=== PATIENT | female | born 2000 | race Two or more races ===

== ENCOUNTER 2023-04-14 20:43 | Emergency (ER) | payer SELFPAY ==
[2023-04-14 20:50] VITALS: BP 115/67; PULSE 86; RESP 17; TEMP 37.1; O2SAT 99
--- NOTE | 2023-04-14 21:28 | ED.GENADUL_ITS ---
Discharge Plan Disposition Patient Disposition: Home Condition: Stable Discharge Details Clinical Impression: UTI (urinary tract infection) Primary Care Provider: [facility],Local ED Provider: Ahsan Nicole Home Meds and New Rx's Prescriptions: New cefpodoxime 200 mg tablet 200 mg PO BID 7 Days Qty: 14 0RF Rx Instructions: must administer with a meal/food Discharge Instructions Instructions: Urinary Tract Infection in Women (ED) Additional Instructions: Please follow-up with your primary care physician. Please return to the emergency department for any worsening symptoms Medical Decision Making 22-year-old female presents with mild vaginal bleeding, vaginal discomfort, dysuria over the last day; consider UTI versus gonorrhea chlamydia versus vaginal laceration versus bacterial vaginosis versus candidiasis versus trichomoniasis versus less likely . Screening labs hCG vaginal examination with vaginal swab. Treatment and disposition pending labs and examination 21: 53 normal external genitalia normal vaginal mucosa, incompletely visualized cervix, physiologic discharge on examination, no purulence or bleeding, vaginal pathogen swab and gonorrhea chlamydia swab sent, urinalysis positive for urinary tract infection. We will start empiric cefpodoxime. Awaiting beta quant to confirm patient is not . Likely home with close follow-up. 22: 29 beta hCG negative. UA positive for UTI. Patient will be called if her gonorrhea chlamydia and or vaginal pathology swabs are positive. HPI General Date/Time Provider Initiated Documentation: 04/14/23 21:02 . HPI Narrative: 22-year-old female presents with 1 day of vaginal pain light bleeding and mild discharge. Pain worse with urinating. Last menstrual period 03/10 Related Data Home Medications Medication Instructions Recorded Confirmed cefpodoxime 200 mg tablet 200 mg PO BID 7 days #14 tabs 04/14/23 Previous Rx's Medication Instructions Recorded cefpodoxime 200 mg tablet 200 mg PO BID 7 days #14 tabs 04/14/23 Allergies Allergy/AdvReac Type Severity Reaction Status Date / Time Penicillins Allergy Unverified 04/14/23 22:22 General Stated Complaint: ENG[employer] MONICA: 4 Review of Systems Narrative: Review of Systems Constitutional: negative Eyes: negative ENT: negative Cardiovascular: negative Respiratory: negative Gastrointestinal: negative : Vaginal discomfort, vaginal bleeding, dysuria Musculoskeletal: negative Skin: negative Neurologic: negative Psych: negative PFSH All Active Problems (Updated 04/14/23 @ 22:30 by Ahsan Nicole MD) UTI (urinary tract infection) (Acute) Social History Smoking/Tobacco Use Status: Never Smoking risk assessment performed?: Yes Alcohol Intake: current Alcohol Intake frequency: holidays/special occasions only Drug use: Never Substance use type: does not use Do you feel safe at home: Yes Do you feel safe in your relationship?: Yes Exam Narrative Exam Narrative: Physical Examination General: alert, awake, cooperative, resting comfortably, no acute distress GI: abdomen soft, non-tender, non-distended; no palpable mass or hepatosplenomegaly : Normal external genitalia, normal vaginal mucosa without bleeding or laceration, physiologic discharge, no appreciable foreign body, incompletely visualized cervix Skin: no lesions, rashes or trauma appreciated Course Vital Signs Vital signs: Vital Signs Temperature 37.1 C 04/14/23 20:50 Pulse 86 04/14/23 20:50 Respiratory Rate 17 04/14/23 20:50 Blood Pressure 115/67 04/14/23 20:50 Pulse Oximetry 99 04/14/23 20:50 Temperature 37.1 C 04/14/23 20:50 Pulse 86 04/14/23 20:50 Respiratory Rate 17 04/14/23 20:50 Respiratory Effort Normal 04/14/23 20:56 Blood Pressure 115/67 04/14/23 20:50 Pulse Oximetry 99 04/14/23 20:50 Oxygen Delivery Method Room Air 04/14/23 20:50 Oxygen Flow Rate 0 04/14/23 20:50 Pain Level 5 04/14/23 20:50 Lab/Test Results Lab/Test Results: POC- Test(urine) Negative
[2023-04-14 21:34] LABS: Abs Immature Grans 0.06 10^3/uL (0.0-0.06); Absolute Eosinophil Count 0.19 10^3/uL (0.0-0.7); Absolute Lymphocyte Count 2.79 10^3/uL (1.2-3.4); Basophils % 0.3; Eosinophils % 1.3; HCT 40.2 % (36.0-46.0); HGB 12.6 g/dL (11.2-15.7); Immature Grans % 0.4; Lymphocytes % 18.7; MCH 26.3 pg (27.0-33.0); MCHC 31.3 % (32.0-36.0); MCV 84 fL (80-95); MPV 9.4 fL (8.0-11.0); Neutrophils % 75.3; Platelet Count 511 10^3/uL (130-400); RBC 4.79 10^6/uL (3.93-5.22); RDW 13.4 % (11.7-14.6); RDW-SD 41.3 fL; WBC 14.93 10^3/uL (4.4-10.8)
[2023-04-14 21:36] LABS: Bilirubin Negative (Negative); Blood Large (Negative); Clarity Cloudy (Clear); Glucose Negative (Negative); Ketones Negative (Negative); Leukocyte Esterase Large (Negative); Nitrite Negative (Negative); Urobilinogen 0.2 mg/dL (Up to 0.2)
[2023-04-14 21:38] LABS: Absolute Basophil Count 0.04 10^3/uL (0.0-0.2); Absolute Neutrophil Count 11.24 10^3/uL (1.2-6.7)
[2023-04-14 21:48] LABS: Bacteria Few HPF (Negative); C & S Indicated? Yes; Casts Negative LPF (Negative); Crystals Negative HPF (Negative); Epithelial Cells Few HPF (Negative); Mucus Negative (Negative); RBC >50 HPF (0-2); WBC >50 HPF (0-5)
[2023-04-14] MEDS: Ketorolac 15 MG/ML VIAL IVP (21:55)
[2023-04-14 22:03] LABS: ALT 21 U/L (14-59); AST 14 U/L (15-37); Albumin 3.6 g/dL (3.4-5.0); Alkaline Phosphatase 102 U/L (46-116); Anion Gap 7.5 mmol/L (3-11); BUN 10 mg/dL (7-18); Bilirubin, Total 0.4 mg/dL (0.2-1.0); CO2 26.5 mmol/L (21.0-32.0); CREATININE 0.6 mg/dL (0.55-1.02); Calcium 8.8 mg/dL (8.5-10.1); Chloride 103 mmol/L (98-107); Glucose 113 mg/dL (74-106); Potassium 3.4 mmol/L (3.5-5.1); Sodium 137 mmol/L (136-145); Total Protein 7.8 g/dL (6.4-8.2)
[2023-04-14 22:04] LABS: HCG Quant, Pregnancy < 1 mIU/mL (1-3)
[2023-04-14] MEDS: Cefpodoxime 200 MG TAB PO (22:58)
[2023-04-14 23:04] VITALS: BP 112/68; PULSE 71; RESP 14; O2SAT 100
[2023-04-16 14:22] LABS: GC Result Negative (Negative)
[2023-04-16 14:26] LABS: Specimen Description VAGINAL
[2023-04-16 14:28] LABS: Chlamydia Result Positive (Negative)
--- NOTE | 2023-04-16 21:40 | ED.FU.B_ITS ---
Date of service: 04/16/23 Time of Service: 21:40 Follow Up Plan: Call made to patient to discuss positive Chlamydia results. Phone call got cut off, will call back. Will call in prescription to [facility] in [place] for Azithromycin 1 gm PO. Discussed test results, verbalized understanding.
== END 2023-04-14 23:05 | disposition home or self-care (01) ==
PROVIDERS: Emergency Provider Emergency Medicine
DX: N39.0 Urinary tract infection, site not specified; B96.20 Unspecified Escherichia coli [E. coli] as the cause of diseases classified elsewhere
CPT/HCPCS: 80053; 87077; 87491; 87591; 96374; 99284; 81003; 81015; 84702; 85025; 87086; 87186; 87480; 87510; 87660; J1885